=== PATIENT | male | born 1980 | race Caucasian/White ===

== ENCOUNTER → 2017-01-22 | Outpatient (CLI) | payer OTHER ==
[~2017-01-22] MED LIST: ALBUTEROL17 GM INH; CLARITIN10 M3 PO; FLEXERIL10 MG PO; GABAPENTIN600 MG PO; KEPPRA500 M1 PO; MOTRIN600 M2 PO; PAXIL40 MG PO
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
== END | disposition home or self-care (01) ==
LOC: CMRI 09:43
DX: M54.9 Dorsalgia, unspecified (principal); M47.896 Other spondylosis, lumbar region; M51.26 Other intervertebral disc displacement, lumbar region; M48.06 Spinal stenosis, lumbar region
CPT/HCPCS: 72148

== ENCOUNTER → 2017-05-25 | Outpatient (CLI) | payer OTHER ==
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
== END | disposition home or self-care (01) ==
LOC: CMRI 14:35
DX: M54.2 Cervicalgia (principal); M47.892 Other spondylosis, cervical region; M48.02 Spinal stenosis, cervical region; G95.20 Unspecified cord compression; M99.81 Other biomechanical lesions of cervical region; M50.222 Other cervical disc displacement at C5-C6 level
CPT/HCPCS: 72141